=== PATIENT | male | born 1955 | race African-American/Black ===

== ENCOUNTER 2016-07-10 17:09 | Emergency (ER) | payer MEDICAID ==
[2016-07-10 17:42] VITALS: TEMP 98.3; BMI 31.1
[2016-07-10] MEDS ORDERED: ONDANSETRON HCL 4 MG/2 ML VIAL IV ONE (17:50)
[2016-07-10] MEDS ORDERED: NS 1,000 ML IV ONE (17:50)
[2016-07-10] MEDS ORDERED: MORPHINE 4 MG/ML INJECTION IV ONE (17:50)
--- NOTE | 2016-07-10 18:09 | EDPRACDOC ---
- General Information Chief Complaint: Headache Stated Complaint: HEADACHE - NO INJURY Time Seen by Provider: 07/10/16 17:46 Information Source: Patient Mode Of Arrival: Car Home Medications: Home Medications Ketorolac Tromethamine [Toradol] 10 mg PO Q6H PRN #20 tab 07/10/16 Lisinopril 10 mg PO DAILY #30 tablet 07/10/16 Allergies/Adverse Reactions: Allergies Allergy/AdvReac Type Severity Reaction Status Date / Time Penicillins Allergy Severe Anaphylaxis Verified 07/10/16 17:55 * - History of Present Illness Onset: 2-3 days HPI: PT PRESENTS DUE TO THROBBING HEADACHE THAT HE STATES HE HAS HAD FOR THE PAST SEVERAL DAYS. PT STATES HE HAS A PMH OF DIABETES BUT HE HAS NOT TAKEN HIS MEDICATION FOR SEVERAL YEARS. PT STATES HE DOES NOT KNOW THAT HE HAS HYPERTENSION ALTHOUGH THIS IS STATED IN HIS CHART. DENIES NAUSEA, VOMITING, CHILLS OR FEVER. Location: Reports: Frontal Pain Quality: Reports: Moderate, Throbbing Modifying Factors: improves with: Immobilization Prior work up: Denies: NO, O, CT, LP, MRI, Neurologist Relevant History of: Reports: None Associated Signs and Symptoms: Denies: Fever/Chills, Nausea/Vomiting ED Past Medical History - History Reviewed Yes Nurses notes reviewed and agree except as marked - Patient Medical History Cardiac History: Reports: Hypertension Psychological History: Denies: Depression Systemic History: Reports: Diabetes - Social Medical History Smoking Status: Former smoker EDM Review of Systems - Review of Systems ROS Negative Except as Marked: Yes All systems reviewed and were negative except as marked - Physical Exam Constitutional: Alert Oriented to: Time, Person, Place Last recorded Vital Signs: Last Vital Signs Temp 98.3 F 07/10/16 17:41 Pulse 68 07/10/16 17:41 Resp 20 07/10/16 17:41 BP 221/104 H 07/10/16 17:41 Pulse Ox 97 07/10/16 17:41 Oxygen Pulse Oxygen Saturation 97 O2 Device Oxygen Flow Rate Fraction of Inspired Oxygen ( FIO2) - HEENT Head: Normal ( normocephalic) Eye Exam: Normal (PERRL, EOMI, Sclera white) Oropharynx: Normal (Pharynx:Moist without exudate,Gums-no swelling) Tympanic Membrane: Normal Nose: No Symptoms Reported (septum midline) Neck: Normal (FROM, trachea at midline) - Respiratory/Cardiovascular Respiratory: Normal - CTA (BBS clear to auscultation without adventitious sounds ) Cardiovascular: Normal (RRR without murmur, gallop or rub) - GI Auscultation: Normal (NABS) Palpation: Normal (Soft,No rebound or guarding, non distended) Tenderness: Non tender Colby's Sign: Negative Rectal Exam: Deferred - Musculoskeletal Back: Normal (Non-Tender) Extremities: Normal (Normal tone, Pulses 2+ No cyanosis or edema, FROM) - Integumentary Skin: Normal, Warm, Dry Lymphatics: Normal (no adenopathy) - Neurologic Memory Impaired: Normal Motor Function: Normal (Normal tone, Pulses 2+ No cyanosis or edema, FROM) Cranial Nerve: Normal (CN II-X11 intact sensation, strength 5/5) Cerebellar: Normal Mood Description: Normal Perception: Normal - Differential Diagnosis Hypertensive - Re-evaluation Re-evaluation 1 Re-evaluation Time: 19:01 (PT CONTINUES TO HAVE A HEADACHE AT THIS TIME) Re-evaluation 2 Re-evaluation Time: 19:37 (BP 180/81 WITH NO CHANGE IN PT HEADACHE. ) Re-evaluation 3 Re-evaluation Time: 20:27 (BP DOWN NOW AND HEADACHE IS MUCH IMPROVED.) - Results 07/10/16 18:06 07/10/16 18:06 - EKG EKG #1 EKG Time: 18:06 -: Yes EKG interpreted by me Rate: bpm: 64 [place]: Normal Rhythm: NSR Block: None Hypertrophy: LVH ST: Normal Decision Time to Discharge: 20:27 - Departure Disposition: Home Condition: Stable Final Diagnosis: Hypertension Qualifiers: Hypertension type: essential hypertension Qualified Code(s): I10 - Essential ( primary) hypertension Instructions: Chronic Hypertension (ED) Education/Counseling Given To: Patient Education/Counseling Given Regarding: Diagnosis, Treatment, Prognosis, Follow Up Referrals: Isaura Brantley MD [Primary Care Provider] - One Week MELA CRONIN [NonStaff] - One Week Prescriptions: New Lisinopril 10 mg PO DAILY #30 tablet Ketorolac Tromethamine [Toradol] 10 mg PO Q6H PRN #20 tab PRN Reason: Pain Additional Instructions: TAKE LISINOPRIL DAILY. FOLLOW UP WITH PCP DAILY. RETURN TO THE ED FOR WORSENING SYMPTOMS OR CONCERNS.
[2016-07-10 18:17] LABS: AUTOMATED BASOPHIL 0.9 % (0-2); AUTOMATED EOSINOPHIL 1.9 % (0-5); AUTOMATED LYMPH 26.2 % (17-44); AUTOMATED MONOCYTE 8.4 % (3-10); AUTOMATED NEUTROPHIL 62.6 % (45-76); MPV 9.5 fL (7.4-10.4)
[2016-07-10 18:28] LABS: BLOOD UREA NITROGEN 10 MG/DL (9-20); CALCIUM 9.3 MG/DL (8.4-10.2); CALCULATED OSMOLALITY 272 MOs/Kg (270-290); CHLORIDE 104 mEq/L (98-107); CPK TOTAL WITH POSSIBLE MB 607 IU/L (55-170); GLUCOSE 98 MG/DL (70-99); SODIUM LEVEL 142 mEq/L (137-146); TOTAL PROTEIN 8.3 G/DL (6.3-8.2)
[2016-07-10 18:40] LABS: RBC/URINE 0-2 (0-2); WBC/URINE 0-2 (0-2)
[2016-07-10 18:42] LABS: LEUKOCYTES/URINE NEG (NEGATIVE); URINE OCCULT BLOOD NEG (NEG/TRACE)
[2016-07-10 18:43] LABS: NITRITE/URINE NEG (NEGATIVE)
[2016-07-10 18:43] LABS: CPKMB 5.2 ng/mL (0-4.5)
--- NOTE | 2016-07-10 18:56 | DIRPT ---
CLINICAL DATA: Hypertension. Throbbing headache for several days. History of diabetes. EXAM: CHEST 2 VIEW COMPARISON: 08/04/2013. FINDINGS: The heart size and mediastinal contours are normal. The lungs are clear. There is no pleural effusion or pneumothorax. No acute osseous findings are identified. IMPRESSION: No active cardiopulmonary process. Electronically Signed By: Renan Sethi M.D. On: 07/10/2016 18:54
[2016-07-10] MEDS ORDERED: METOCLOPRAMIDE 10 MG/2 ML VIAL IV ONE (19:38)
[2016-07-10] MEDS ORDERED: DIPHENHYDRAMINE 50 MG/ML VIAL IV ONE (19:38)
[2016-07-10] MEDS ORDERED: KETOROLAC TROMETH 30 MG/ML VIAL IV ONE (19:38)
[2016-07-10] MEDS ORDERED: DEXAMETHASONE PF 10 MG/1 ML VIAL IV ONE (19:38)
--- NOTE | 2016-07-10 19:52 | DIRPT ---
CLINICAL DATA: Hypertension EXAM: CT HEAD WITHOUT CONTRAST TECHNIQUE: Contiguous axial images were obtained from the base of the skull through the vertex without intravenous contrast. COMPARISON: 08/05/2014 FINDINGS: No acute cortical infarct, hemorrhage, or mass lesion ispresent. Ventricles are of normal size. No significant extra-axial fluid collection is present. chronic sinusitis is identify with chronic mucoperiosteal thickening involving the sphenoid sinus, maxillary sinuses and frontal sinuses. Complete opacification of the maxillaries and frontal sinuses noted. The mastoid air cells are clear. The calvarium is intact. IMPRESSION: 1. No acute intracranial abnormalities. 2. Advanced sinusitis. Electronically Signed By: Jade Contreras M.D. On: 07/10/2016 19:50
[2016-07-10 20:46] VITALS: BP 148/75; PULSE 72
== END 2016-07-10 21:02 | disposition home or self-care (01) ==
LOC: EDMC 17:09
DX: I10 Essential (primary) hypertension (principal)
CPT/HCPCS: 36415; 70450; 71020; 80053; 81001; 82550; 82553; 82962; 83880; 84484; 85025; 85610; 85730; 93005; 96361; 96374; 96375; 99284; J1100; J1200; J1885; J2270; J2405; J2765; J3490